=== PATIENT | male | born 1980 | race Two or more races ===

== ENCOUNTER 2019-08-14 18:11 | Emergency (ER) | payer MEDICAID ==
[~2019-08-14] VITALS: Ht 167.6 cm; Wt 89.8 kg
[2019-08-14 18:21] VITALS: BP 129/83
--- NOTE | 2019-08-14 18:27 | NUR ---
SEEN AND EXAMINED BY .
--- NOTE | 2019-08-14 19:18 | NUR ---
REPORT RECEIVED FROM RAFFI RINALDI FOR SARAH.
--- NOTE | 2019-08-14 19:30 | NUR ---
Patient discharged to home in stable condition. Written and verbal after care instructions given. Patient verbalizes understanding of instruction.
== END 2019-08-14 19:34 | disposition home or self-care (01) ==
LOC: ER 18:16
DX: S20.211A Contusion of right front wall of thorax, initial encounter (principal); W18.39XA Other fall on same level, initial encounter; Y93.89 Activity, other specified; Y92.89 Other specified places as the place of occurrence of the external cause; Y99.8 Other external cause status
CPT/HCPCS: 71100-TC